=== PATIENT | male | born 1970 | race Native Hawaiian/Other Pacific Islander ===

== ENCOUNTER 2023-05-25 11:42 | Observation (INO) | payer BC ==
[~2023-05-25] VITALS: Ht 175.3 cm; Wt 84.5 kg
[2023-05-25] VITALS (7 sets, daily range): BP systolic 132–162; BP diastolic 75–99; TEMP 97.2–98.9; Ht 175.3 cm; Wt 84.5 kg
[2023-05-25 12:07] LABS: PLATELET COUNT 318 K/uL (152-353)
[2023-05-25 12:19] LABS: POTASSIUM 3.2 mmol/L (3.6-5.2)
[2023-05-26] VITALS: BP 109/69; TEMP 98
[2023-05-26 04:00] VITALS: BP 140/74; TEMP 97.8
[2023-05-26 05:41] LABS: PLATELET COUNT 237 K/uL (142-355)
[2023-05-26 05:44] LABS: POTASSIUM 3.7 mmol/L (3.6-5.2)
[2023-05-26 07:42] VITALS: BP 128/77; TEMP 98
[2023-05-26] MEDS ORDERED: METO25TA4 PO (10:10)
[2023-05-26] MEDS ORDERED: PRAS10TA PO (10:10)
[2023-05-26] MEDS ORDERED: CRESTOR20 MG PO (10:11)
[2023-05-26] MEDS ORDERED: OMEPRAZOLE DR40 MG PO (10:11)
[2023-05-26] MEDS ORDERED: NITR0.4S2 SL (10:27)
[2023-05-26] MEDS ORDERED: ASPIR-LOW81 MG PO (10:27)
[2023-05-26] MEDS ORDERED: ASCO500T18 PO (10:28)
[2023-05-26 12:00] VITALS: BP 141/83; TEMP 97.7
== END 2023-05-26 16:45 | disposition home or self-care (01) ==
LOC: ED 11:50 → EDSEX 11:50 → MED/SURG 15:39
PROVIDERS: Family Medicine; ADMIT Internal Medicine Endocrinology, Diabetes & Metabolism; ATTEND Internal Medicine Endocrinology, Diabetes & Metabolism
DX: R42 Dizziness and giddiness (principal); R11.2 Nausea with vomiting, unspecified; I25.10 Atherosclerotic heart disease of native coronary artery without angina pectoris; I10 Essential (primary) hypertension; E78.49 Other hyperlipidemia; K21.9 Gastro-esophageal reflux disease without esophagitis
CPT/HCPCS: 80048; 80053; 84484; 85027; 93005; 96361; 96374; 96375; 99221; 99284; G0378; J2405; J2550; J3360